=== PATIENT | female | born 1990 ===

== ENCOUNTER 2022-06-11 13:20 | Inpatient (IN) | payer BC ==
[2022-06-11 12:35] LABS: CHLORIDE,CL 100 mmol/L (98-107); SODIUM,NA 133 mmol/L (136-145)
[2022-06-11 12:52] LABS: ANION GAP 17.2 meq/L (7-15); ESTIMATED GFR 93 mL/min (>=60)
[2022-06-11 13:07] LABS: CORONAVIRUS COVID-19 NAA NEGATIVE (NEGATIVE); RESPIRATORY SYNCYTIAL VIR NAA NEGATIVE (NEGATIVE)
[~2022-06-11 13:20] MED LIST: Lactated Ringers 1,000 ML IV SCH
[2022-06-11] MEDS ORDERED: Sodium Chloride 0.9% 250 ML IV SCH (14:15)
[2022-06-11] MEDS ORDERED: Glucagon,Human Recombinant 1 MG Vial IM PRN (15:45)
[2022-06-11] MEDS ORDERED: 50% Dextrose in Water 50 ML Syringe IVPUSH PRN (15:45)
[2022-06-11] MEDS ORDERED: Acetaminophen 325 MG Tab PO PRN (16:00)
[2022-06-11] MEDS ORDERED: Polyethylene Glycol 3350 Powder 238 GM Bot PO ONE (16:00)
[2022-06-11] MEDS ORDERED: Lactated Ringers 1,000 ML IV SCH (16:00)
[2022-06-11] MEDS ORDERED: Ondansetron 4 MG/2 ML SDV IVPUSH PRN (16:00)
[2022-06-11] MEDS: Insulin Lispro 100 Units/ML 3 ML Vial SUBCUT SCH ×2 (17:00→20:12)
[2022-06-11] MEDS: Sodium Chloride 0.9% 10 ML Syringe FLUSH PRN (17:06)
[2022-06-11] MEDS: Pantoprazole 40 MG Vial IVPUSH SCH (17:06)
[2022-06-11] MEDS ORDERED: Bisacodyl 5 MG Tab PO ONE (22:00)
[2022-06-12] MEDS: Pantoprazole 40 MG Vial IVPUSH SCH ×2 (03:08→17:27)
[2022-06-12] MEDS: Sodium Chloride 0.9% 10 ML Syringe FLUSH PRN ×2 (03:08→17:27)
[2022-06-12 07:54] LABS: ANION GAP 11.2 meq/L (7-15)
[2022-06-12] MEDS ORDERED: Lactated Ringers 1,000 ML IV SCH (08:15)
[2022-06-12] MEDS ORDERED: Propofol 200 MG/20 ML SDV ONE ×4 (08:30→13:24)
[2022-06-12] MEDS: Insulin Lispro 100 Units/ML 3 ML Vial SUBCUT SCH ×4 (08:41→20:05)
[2022-06-12] MEDS ORDERED: Benzonatate 100 MG Cap PO PRN (16:00)
[2022-06-12] MEDS ORDERED: Sodium Chloride 0.9% 250 ML IV SCH (21:45)
[2022-06-12] MEDS ORDERED: Potassium Bicarbonate/Cit Ac 20 MEQ Effervescent Tab PO ONE (21:49)
[2022-06-13] MEDS: Sodium Chloride 0.9% 10 ML Syringe FLUSH PRN ×6 (00:09→15:41)
[2022-06-13] MEDS ORDERED: Potassium Bicarbonate/Cit Ac 20 MEQ Effervescent Tab ONE (00:58)
[2022-06-13] MEDS: Pantoprazole 40 MG Vial IVPUSH SCH ×2 (04:49→15:41)
[2022-06-13] MEDS: Insulin Lispro 100 Units/ML 3 ML Vial SUBCUT SCH ×4 (07:35→20:14)
[2022-06-13] MEDS ORDERED: Potassium Bicarbonate/Cit Ac 20 MEQ Effervescent Tab PO ONE (09:56)
[2022-06-13] MEDS ORDERED: Potassium Chloride 20 MEQ Tab.ER PO ONE ×5 (11:00→20:00)
[2022-06-13] MEDS ORDERED: Doxycycline Monohydrate 100 MG Cap PO ONE ×2 (13:55→22:00)
[2022-06-13] MEDS ORDERED: Azithromycin 500 MG in Sodium Chloride 0.9% 250 ML IV SCH (14:00)
[2022-06-13] MEDS ORDERED: cefTRIAXone 1 GM in Sodium Chloride 0.9% 100 ML IV SCH (15:00)
[2022-06-14] MEDS: Pantoprazole 40 MG Vial IVPUSH SCH (03:55)
[2022-06-14] MEDS ORDERED: Doxycycline Monohydrate 100 MG Cap PO SCH (08:00)
[2022-06-14] MEDS: Insulin Lispro 100 Units/ML 3 ML Vial SUBCUT SCH ×2 (08:25→11:52)
[2022-06-14 08:31] LABS: ANION GAP 5.9 meq/L (7-15)
== END 2022-06-14 16:00 | disposition home or self-care (01) | DRG 242 ==
LOC: LL.ACU 13:20 → LL.MS 14:19
PROVIDERS: ADMIT Nurse Practitioner Family; ATTEND Nurse Practitioner Family
PROC: 0DD68ZX Extraction of Stomach, Via Natural or Artificial Opening Endoscopic, Diagnostic (ICD-10-PCS; principal; 2022-06-12)
PROC: 0DBP8ZX Excision of Rectum, Via Natural or Artificial Opening Endoscopic, Diagnostic (ICD-10-PCS; 2022-06-12)
DX: K22.6 Gastro-esophageal laceration-hemorrhage syndrome (principal); D62 Acute posthemorrhagic anemia; E11.9 Type 2 diabetes mellitus without complications; Z88.0 Allergy status to penicillin; Z79.84 Long term (current) use of oral hypoglycemic drugs; Z79.899 Other long term (current) drug therapy
CPT/HCPCS: 36415; 36430; 71046; 80048; 81003; 82947; 83605; 84132; 84703; 85014; 85018; 85027; 86850; 86900; 86901; 86920; 86922; A9270-GY; C9113; J0456; J0696; J1815-GY; J2704; J3490; J7050; J7120; P9016